=== PATIENT | female | born 1980 | race Caucasian/White ===

== ENCOUNTER 2017-03-02 19:58 | Emergency (ER) | payer OTHER, BC ==
[~2017-03-02] VITALS: Ht 162.6 cm; Wt 61.7 kg
[~2017-03-02 19:58] MED LIST: BIRTH CONTROL PO; LISINOPRIL AND1 TA3 PO; LO LOESTRIN FE1 TAB PO; PREDNISONE 20MG20 MG PO; PRENATAL1 TA2 PO; TESSALON PERLE100 MG PO; TOPAMAX15 MG PO; VICODIN 5/500 T1 TAB PO; VISTARIL50 MG PO; VOLTAREN75 MG PO; ZOLOFT 50MG TAB50 MG PO
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
[2017-03-02] MEDS ORDERED: NORCO 325 MG-51 TAB PO (22:51)
[2017-03-02 23:02] VITALS: BP 147/79
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
== END 2017-03-02 23:03 | disposition home or self-care (01) ==
LOC: ER 19:58
DX: S93.401A Sprain of unspecified ligament of right ankle, initial encounter (principal); S93.601A Unspecified sprain of right foot, initial encounter; S73.101A Unspecified sprain of right hip, initial encounter; J45.909 Unspecified asthma, uncomplicated; F17.210 Nicotine dependence, cigarettes, uncomplicated; V43.62XA Car passenger injured in collision with other type car in traffic accident, initial encounter; Y92.410 Unspecified street and highway as the place of occurrence of the external cause; Z88.0 Allergy status to penicillin; Z88.2 Allergy status to sulfonamides; Z79.52 Long term (current) use of systemic steroids; Z79.899 Other long term (current) drug therapy; Z79.3 Long term (current) use of hormonal contraceptives; Z86.718 Personal history of other venous thrombosis and embolism; Z85.41 Personal history of malignant neoplasm of cervix uteri